=== PATIENT | male | born 1965 | race Caucasian/White ===

== ENCOUNTER → 2017-02-15 | Outpatient (CLI) | payer BC ==
[~2017-02-15] MED LIST: AFRIN; LACT1CAP6 PO; RXC5 PO; TAPE50TA5 PO
[2017-02-15 14:42] LABS: CHOLESTEROL/HDL RATIO 5.4
== END | disposition home or self-care (01) ==
LOC: C.LABBC 09:33
PROVIDERS: ATTEND Family Medicine
DX: Z00.00 Encounter for general adult medical examination without abnormal findings (principal)